=== PATIENT | female | born 1985 | race Caucasian/White ===

== ENCOUNTER 2017-11-03 12:53 | Emergency (ER) | payer MEDICAID, SELFPAY ==
[2017-11-03] MEDS ORDERED: Nitroglycerin 0.4 MG TAB (25 Tab Bottle) ONE (13:43)
[2017-11-03] MEDS ORDERED: hydrOXYzine 25 MG TAB ONE ×2 (13:45→15:57)
[2017-11-03 13:49] LABS: #Basophils 0.1 thou/uL (0.0-0.2); #Eosinphils 0.5 thou/uL (0.0-0.7); #Lymphocytes 1.4 thou/uL (1.20-3.40); #Monocytes 0.4 thou/uL (0.11-0.59); #Neutrophils 4.1 thou/uL (1.40-6.50); %Basophils 0.8 % (0.0-1.0); %Eosinophils 7.4 % (0.0-10.0); %Lymphocytes 21.5 % (21.0-51.0); %Monocytes 6.1 % (0.0-10.0); %Neutrophils 64.2 % (42.0-75.0); Hemoglobin 12.3 g/dL (12.0-16.0); Mean Corpuscular Hemoglobin 25.7 pg (27.0-31.0); Mean Corpuscular Volume 77.8 fL (78.0-98.0); Mean Platelet Volume 7.1 fL (7.4-10.4); Platelet Count 364 thou/uL (130-400); RBC Distribution Width 15.3 % (11.5-14.5); White Blood Cell (WBC) Count 6.4 thou/uL (4.8-10.8)
[2017-11-03 14:09] LABS: ALT (SGPT) 31 U/L (8-55); AST (SGOT) 26 U/L (5-34); Albumin 3.8 g/dL (3.5-5.0); Alkaline Phosphatase 79 U/L (40-150); Anion Gap 10 mmol/L (10-20); BUN (Urea Nitrogen) 7 mg/dL (7.0-18.7); Bilirubin, Total 0.2 mg/dL (0.2-1.2); CK (CPK) 419 U/L (29-168); Calc. Creatinine Clearance 0 mL/min (70-130); Calcium 9.1 mg/dL (7.8-10.44); Carbon Dioxide 24 mmol/L (22-29); Chloride 108 mmol/L (98-107); Estimated GFR-MDRD 77; Globulin 2.5 g/dL (2.4-3.5); Glucose 103 mg/dL (70-105); Lipase 28 U/L (8-78); Potassium 3.9 mmol/L (3.5-5.1); Protein, Total 6.3 g/dL (6.0-8.3); Sodium 138 mmol/L (136-145)
[2017-11-03 14:12] LABS: CKMB 1.5 ng/mL (0-6.6); Troponin I Less than 0.010 ng/mL (< 0.028)
--- NOTE | 2017-11-03 14:24 | RAD ---
PORTABLE CHEST: Date: 11/03/17 HISTORY: Chest pain. FINDINGS: Lungs are clear. Heart and mediastinum appear normal. IMPRESSION: Negative exam. POS: [facility]
[2017-11-03] MEDS ORDERED: Ondansetron ODT 4 MG TAB ONE (14:38)
[2017-11-03 16:57] LABS: Troponin I Less than 0.010 ng/mL (< 0.028)
== END 2017-11-03 17:21 | disposition home or self-care (01) ==
LOC: ERS 12:53
DX: R07.9 Chest pain, unspecified (principal); F41.9 Anxiety disorder, unspecified; F31.9 Bipolar disorder, unspecified; F17.210 Nicotine dependence, cigarettes, uncomplicated
CPT/HCPCS: 36415; 71045; 80053; 82553; 83690; 83880; 84484; 85025; 93005; 94760; Q0162

== ENCOUNTER 2020-06-27 12:04 | Emergency (ER) | payer SELFPAY ==
[2020-06-27] MEDS ORDERED: Ketorolac Tromethamine 30 MG/ML VIAL ONE (12:36)
--- NOTE | 2020-06-27 12:48 | RAD ---
Exam:4 views left knee HISTORY: Patient fell on ice a couple days ago. Pain. COMPARISON: None FINDINGS: No joint effusion. No fractures or malalignment. Joint spaces are preserved. IMPRESSION: No fracture
== END 2020-06-27 13:35 | disposition home or self-care (01) ==
LOC: ERS 12:04
DX: S80.02XA Contusion of left knee, initial encounter (principal); F17.210 Nicotine dependence, cigarettes, uncomplicated; W00.0XXA Fall on same level due to ice and snow, initial encounter
CPT/HCPCS: 96372; J1885